=== PATIENT | female | born 1980 | race Caucasian/White ===

== ENCOUNTER → 2021-02-18 | Outpatient (CLI) | payer BC | LOC: MC.RAD 15:45 | DX: Z12.31 Encounter for screening mammogram for malignant neoplasm of breast (principal) ==

== ENCOUNTER 2022-04-15 08:29 | Day surgery (SDC) | payer BC ==
[~2022-04-15] VITALS: Ht 160 cm; Wt 53.0 kg
[2022-04-15 09:19] VITALS: BP 123/86; PULSE 74; TEMP 97.8
[2022-04-15] MEDS ORDERED: ZYRTEC 10MG10 MG PO (09:23)
[2022-04-15] MEDS ORDERED: BLISOVI FE 1-21 EACH PO (09:23)
[2022-04-15] MEDS ORDERED: TEMOVATE0.05% TP (09:24)
[2022-04-15 10:32] VITALS: BP 117/92; PULSE 72; TEMP 97.5
--- NOTE | 2022-04-15 10:32 | NUR ---
PATIENT AMBULATED TO CHAIR WITH STANDBY ASSIST. PATIENT DROWSY AND ORIENTED, DENIES PAIN AND NAUSEA. BREATHING REGULAR AND UNLABORED. NURSE HANDOFF COMPLETED IN ROOM. SEE CHART FOR VITAL SIGNS. PATIENT SPOUSE, ESAU, PRESENT IN ROOM.
[2022-04-15 10:43] VITALS: BP 129/83; PULSE 62
--- NOTE | 2022-04-15 10:43 | NUR ---
PATIENT ALERT AND ORIENTED, DENIES PAIN AND NAUSEA. PATIENT HAD CRANBERRY JUICE AND KEYANNA CRACKERS, BOTH TOLERATED WELL. MET WITH PATIENT IN ROOM TO DISCUSS PROCEDURE. CALL LIGHT IN REACH.
[2022-04-15 10:45] VITALS: BP 123/85; PULSE 61
[2022-04-15 11:00] VITALS: BP 124/83; PULSE 64
--- NOTE | 2022-04-15 11:00 | NUR ---
PATIENT DENIES PAIN AND NAUSEA. DISCHARGE TEACHING COMPLETED WITH PRINTED INSTRUCTIONS AND EDUCATION SENT HOME WITH PATIENT. PATIENT AND ESAU VERBALIZED UNDERSTANDING OF TEACHING. IV REMOVED. PATIENT DISCHARGED HOME WITH [facility] TRANSPORT.
== END 2022-04-15 11:26 | disposition home or self-care (01) ==
LOC: SDCO 08:29
DX: K52.9 Noninfective gastroenteritis and colitis, unspecified (principal); K62.89 Other specified diseases of anus and rectum; D64.9 Anemia, unspecified; J45.909 Unspecified asthma, uncomplicated
CPT/HCPCS: J2704; J7120

== ENCOUNTER → 2022-06-12 | Outpatient (CLI) | payer BC ==
[~2022-06-12] MED LIST: BLISOVI FE 1-21 EACH PO; TEMOVATE0.05% TP; ZYRTEC 10MG10 MG PO
== END ==
LOC: MC.RAD 09:12
DX: Z12.31 Encounter for screening mammogram for malignant neoplasm of breast (principal)